=== PATIENT | female | born 1985 | race Caucasian/White ===

== ENCOUNTER → 2017-05-31 15:18 | Outpatient (CLI) | payer OTHER, SELFPAY ==
[2017-05-31 17:37] LABS: Chlamydia Trachomatis by PCR Negative (Negative); Neisserai gonorrhoeae by PCR Negative (Negative); Probe Check PASS; Sample Adequacy Control PASS; Specimen Processing Control PASS
[2017-06-05 11:04] LABS: HPV Reflexed? NOT INDICATED
== END ==
PROVIDERS: Visit Provider Obstetrics & Gynecology
DX: Z12.4 Encounter for screening for malignant neoplasm of cervix (principal); Z11.3 Encounter for screening for infections with a predominantly sexual mode of transmission
CPT/HCPCS: 87491; 87591; 88175; G0145

== ENCOUNTER → 2017-06-19 16:33 | Outpatient (CLI) | payer OTHER, SELFPAY ==
[2017-06-19 18:01] LABS: Absolute Neutrophil Count 7.2 X10^3/uL (2.0-7.7); Basophil# 0.02 X10^3/uL; Basophil% 0.2 % (0-1); Eosinophil# 0.09 X10^3/uL; Eosinophils% 0.9 % (0-5); Hematocrit 39.8 % (37-47); Hemoglobin 13.6 g/dl (12.0-15.0); Lymphocyte % 18.5 % (19-41); Mean Corp Hgb Conc 34.2 g/gl (32-36); Mean Corpuscular Hgb 31.9 pg (27.0-32.0); Mean Corpuscular Volume 93.2 fL (81-99); Mean Platelet Vol. 10.8 fl (6.2-12.0); Monocyte# 0.63 X10^3/uL; Monocyte% 6.5 % (0-10); Neutrophil # 7.15 X10^3/uL (2.7-7.7); Neutrophil % 73.7 % (47-70); POSITIVE COUNT NO; POSITIVE DIFFERENTIAL NO; POSITIVE MORPHOLOGY NO; Platelet Count 271 K/mm3 (150-450); RBC Distribution Width CV 11.9 % (11.6-14.6); RBC Distribution Width SD 40.2 fl (35.1-43.9); Red Blood Count 4.27 M/mm3 (4.2-5.4); White Blood Count 9.7 K/mm3 (4.4-11.0)
[2017-06-19 18:23] LABS: Thyroid Stim Hormone (TSH) 0.89 uIU/mL (0.358-3.74)
[2017-06-19 18:32] LABS: Color, Urine Yellow (Yellow); Glucose, Dipstick Normal (Normal); Ketone-Dipstick Negative (Negative); Leukocyte Esterase-Dipstick Negative /ul (Negative); Nitrite-Dipstick Negative (Negative); Occult Blood-Urine Negative /ul (Negative); Protein-Dipstick Negative (Negative); Urine Bilirubin Dipstick Negative (Negative); Urine Clarity Sl. Cloudy (Clear); Urine Urobilinogen Normal (Normal); Urine pH 6.5 (5.0 - 8.0)
[2017-06-19 18:40] LABS: Amphetamine Urine VISTA NEGATIVE (<1000 ng/mL); Barbiturate Urine VISTA NEGATIVE (< 200 ng/mL); Benzodiazepine Urine VISTA NEGATIVE (< 200 ng/mL); Cocaine Urine VISTA NEGATIVE (< 300 ng/mL); Ecstacy Urine VISTA NEGATIVE (< 500 ng/mL); Methadone Urine VISTA NEGATIVE (< 300 ng/mL); PCP Urine VISTA NEGATIVE (< 25 ng/mL); THC Urine VISTA NEGATIVE (< 50 ng/mL); Vista UDS pH Range 6
[2017-06-20 10:36] LABS: HIV - WCH Non-Reactive (Nonreactive); Rubella IgG > 500.0 IU/mL; Vitamin D,25 Hydroxy 9.5 ng/mL (29.95-100.01)
[2017-06-21 12:32] LABS: Toxoplasma Gondii IgM < 3.0 AU/mL (0.0-7.9)
[2017-06-21 12:33] LABS: HEPATITIS B SURFACE AG Negative (Negative); Hep C Antibodies <0.1 s/co ratio (0.0-0.9); Toxoplasma Gondii IgG < 3.0 IU/mL (0.0-7.1)
[2017-06-22 02:34] LABS: Prenatal RPR NONREACTIVE (NONREACTIVE)
== END ==
PROVIDERS: Visit Provider Obstetrics & Gynecology
DX: Z34.81 Encounter for supervision of other normal pregnancy, first trimester (principal)
CPT/HCPCS: 36415; 80307; 81002; 82306; 83036; 84443; 85025; 86703; 86762; 86777; 86778; 86803; 87340

== ENCOUNTER → 2017-10-19 08:55 | Outpatient (CLI) | payer OTHER, SELFPAY ==
[2017-10-19 12:05] LABS: Hematocrit 37.5 % (37-47); Mean Corp Hgb Conc 34.7 g/gl (32-36); Mean Corpuscular Hgb 31.7 pg (27.0-32.0); Mean Corpuscular Volume 91.5 fL (81-99); Mean Platelet Vol. 10.9 fl (6.2-12.0); Platelet Count 243 K/mm3 (150-450); RBC Distribution Width CV 12.6 % (11.6-14.6); RBC Distribution Width SD 40.7 fl (35.1-43.9); White Blood Count 10.8 K/mm3 (4.4-11.0)
[2017-10-19 12:07] LABS: Scan Indicated on CBC? Y/N NO
[2017-10-19 12:17] LABS: Glucose Challenge Gest 1H 50g 70 mg/dL (70-140)
== END ==
PROVIDERS: Visit Provider Obstetrics & Gynecology
DX: Z34.82 Encounter for supervision of other normal pregnancy, second trimester (principal)
CPT/HCPCS: 36415; 82950; 85027

== ENCOUNTER → 2017-11-01 16:08 | Outpatient (CLI) | payer OTHER, SELFPAY ==
[2017-11-02 11:59] LABS: Vitamin D,25 Hydroxy 20.6 ng/mL (29.95-100.01)
== END ==
PROVIDERS: Visit Provider Obstetrics & Gynecology
DX: E55.9 Vitamin D deficiency, unspecified (principal)
CPT/HCPCS: 82306

== ENCOUNTER → 2017-12-14 09:07 | Outpatient (CLI) | payer OTHER, SELFPAY ==
[2017-12-14 12:31] LABS: Group B Strep DNA By PCR POSITIVE (Negative); Probe Check PASS
== END ==
PROVIDERS: Visit Provider Obstetrics & Gynecology
DX: Z36.85 Encounter for antenatal screening for Streptococcus B (principal)
CPT/HCPCS: 87653

== ENCOUNTER 2017-12-29 06:04 | Outpatient (CLI) | payer OTHER, SELFPAY ==
[2017-12-29 06:13] VITALS: BMI 41.8
--- NOTE | 2017-12-29 08:57 | PCM.OP.BLANK ---
Operative Report Date of Procedure: 12/29/17 PreOp Dx: Breech presentation, prior vaginal delivery PostOp Dx: Persistent breech presentation, unsuccessful trial of external cephalic version Operation: External Cephalic Version Findings: NST reactive pre and post procedure Clinical Note: Ms. Coats is a 23 year old female who presented to L&D for a scheduled external cephalic version. Her past OB history is significant for a previous successful vaginal delivery. At her most recent office visit she was diagnosed with a breech presentation. Fetus is AGA. Anterior placenta and DONAL 15 cm. Today she is currently 37 + weeks . A reactive heart tracing was obtained prior to the procedure. Risks of ECV, including abnormal FHR, possible emergency C/S, and failed ECV were discussed with the patient and consent was obtained. Procedure Note: A bedside ultrasound was performed which confirmed the single intrauterine with vertex at maternal epigastrium to RUQ, breech presentation. There was adequate fluid documented 12/27/17. Active movement, breathing noted. BPP was 8/8. The pelvis was located in the maternal RLQ, spine along the maternal left side, and head in the maternal epigastrium to RUQ. Using manual pressure, the fetus was manipulated with gentle pressure from the palms against the buttock and posterior occiput to stimulate a forward roll. In total, four attempts where made. with a forward roll and one attempt made at back flip. HRs were obtained between each attempt and were reassuring . The fetus remained in breech presentation, with movement of the VTX only tot he maternal R side, at near waist level. Following the trial procedure, she was noted to have a reassuring and reactive tracing and no regular contractions . She was discharged home with instructions to return to L&D if signs / symptoms of labor, and otherwise she will follow up in the office as scheduled for repeat evaluation of presentation.
--- NOTE | 2018-01-01 08:11 | OB.TRI.NOTE ---
- Problem List (1) 38 weeks gestation of Status: Acute (2) Malpresentation of fetus, antepartum Status: Acute History of Present Illness Date of Service: 12/29/17 Was patient seen by the physician?: Yes Reason For Visit: VERSION Date of Service: 12/29/17 Final LEIGHTON: 01/12/18 Gestational age: 38 Weeks and 0 Days History of Present Illness: 32 yo female presents at 38 wk for trial of external cephalic version. She is scheduled for primary C/S at 39 wk, but called in to ofc late 12/28/17 stating wanting to try ext cephalic version. AGA and DONAL 15 cm in ofc. Breech with VTX in maternal epigastrium, to RUQ. Anterior placenta. Allergies Penicillins [PCN] Allergy (Verified 12/29/17 06:38) Itching NST - FHR Rate Baby A Variability:: Moderate Accelerations:: 15 x 15 Decelerations:: None NST Reactive:: Yes, Appropriate for gestational age FHR Category:: Category I Uterine Activity:: no regular UCs Impression/Plan 38 wk EGA NST reactive before and after the attempted ECV. Trial of external cephalic version, unsuccessful. Plan primary C/S at 39 wks
== END 2017-12-29 08:15 | disposition home or self-care (01) ==
LOC: WPOUT 06:10 → WP 06:11
PROVIDERS: Visit Provider Obstetrics & Gynecology
DX: O32.1XX0 Maternal care for breech presentation, not applicable or unspecified (principal); Z3A.38 38 weeks gestation of pregnancy
CPT/HCPCS: 59025; 59050; 59412; 76815; 99218; G0378

== ENCOUNTER 2018-01-08 05:15 | Inpatient (IN) | payer OTHER, SELFPAY ==
[2018-01-08] VITALS (20 sets, daily range): BP systolic 91–111; BP diastolic 44–71; PULSE 79–103; RESP 12–20; TEMP 35.9–37.3; O2SAT 96–99; BMI 42.0
--- NOTE | 2018-01-08 | FALS_PTH ---
PATIENT: MARISOL BARNES LOC: [facility] U#:[id number] AGE/SX: 32/F ROOM: WP002 RE01/08/[address]: Dr. Yady Champion MD : [id number] BED: 1 DIS: 01/10/2018 SPEC #: [id number] RECD: 01/08/18 13:12 STATUS: CAITLIN RENhi #: [id number] PATRICIA: 01/08/18 00:[address]: Yady Tran DEPT: SURGICAL PATHOLOGY RECD BY: Marcel Smiley ENTERED: 01/08/18 13:12 SP TYPE: FALL TUBES OTHR DR: No Primary Care Phys Tissues: Fallopian tube Procedures: Surgery Specimen Level II HEADER OPERATION: Tubal ligation, fallopian tubes PRE-OP DIAGNOSIS: Tubal ligation TISSUE SUBMITTED: Fallopian tubs, sutures in right tube MICROSCOPIC DIAGNOSIS Right and left fallopian tubes, salpingectomies: Two complete segments of fallopian tubes with no pathologic change. AM:marisabel 01/09/18 MICROSCOPIC DESCRIPTION Slides are reviewed. GROSS DESCRIPTION Received is one container labeled with the patient name and designated right fallopian tube with suture, left tube no suture. The specimen consists of two irregular pieces of dove soft tissue, right tube identified by suture that measure 1 cm in length and 0.9 cm in diameter and inked black. The left tube without suture measures 1.5 in length and 0.8 cm in diameter. The entire specimen is submitted in one cassette. Both pieces will be sectioned at the time of embedding. / BRIANNA:marisabel 01/08/18 TC: 4 CPT: 83774 x2
[2018-01-08] MEDS: Lactated Ringers 1,000 ML 999 ML IV (05:45)
[2018-01-08 06:39] LABS: Absolute Lymphocyte Count 1.58 X10^3/ul (0.83-4.51); Absolute Neutrophil Count 6.9 X10^3/uL (2.0-7.7); Basophil# 0.03 X10^3/uL; Basophil% 0.3 % (0-1); Eosinophil# 0.08 X10^3/uL; Eosinophils% 0.9 % (0-5); Hematocrit 35.8 % (37-47); Hemoglobin 12.2 g/dl (12.0-15.0); Lymphocyte # 1.58 X10^3/ul (4.0); Lymphocyte % 17.2 % (19-41); Mean Corp Hgb Conc 34.1 g/gl (32-36); Mean Corpuscular Volume 91.1 fL (81-99); Mean Platelet Vol. 11.1 fl (6.2-12.0); Monocyte# 0.62 X10^3/uL; Monocyte% 6.7 % (0-10); Neutrophil # 6.86 X10^3/uL (2.7-7.7); Neutrophil % 74.6 % (47-70); Platelet Count 219 K/mm3 (150-450); RBC Distribution Width CV 12.9 % (11.6-14.6); RBC Distribution Width SD 42.6 fl (35.1-43.9); Red Blood Count 3.93 M/mm3 (4.2-5.4); White Blood Count 9.2 K/mm3 (4.4-11.0)
[2018-01-08] MEDS: Lactated Ringers 1,000 ML 150 ML IV (06:54)
[2018-01-08] MEDS: Sodium Citrate/Citric Acid 30 ML UDC PO (07:10)
[2018-01-08 07:15] LABS: POSITIVE COUNT NO; POSITIVE DIFFERENTIAL NO; POSITIVE MORPHOLOGY NO
--- NOTE | 2018-01-08 08:57 | PCM.OB.CSR ---
- Problem List (1) 39 weeks gestation of Status: Acute (2) Breech presentation of fetus Status: Acute Qualifiers: Fetus number: single or unspecified fetus Qualified Code(s): O32.1XX0 - Maternal care for breech presentation, not applicable or unspecified Comment: Infant 3435g (3) Encounter for sterilization Status: Acute Delivery Classification: Scheduled Final LEIGHTON: 01/12/18 Final LEIGHTON Source: US <20 weeks Gestational age: 39 Weeks and 3 Days Indications: 32-year-old 2 para 1001 who was found to have breech presentation at 37 weeks gestational age. She underwent attempted external cephalic version which was unsuccessful. Following counseling she declined repeat version attempt and opted to proceed with primary section with bilateral tubal ligation. Risks, benefits, indications and alternatives of procedure were reviewed. Informed consent was obtained. Indications for : Breech Description of Procedure: The patient was taken to the operating room and spinal analgesia was administered. She is placed in a dorsal supine position with left lateral tilt. The perineum and abdomen were prepped and draped in sterile fashion. And the spinal was found to be adequate. A Pfannenstiel incision was made using a scalpel and brought down to incise the subcutaneous tissue and rectus fascia at the midline. Subcutaneous tissue was bluntly dissected off the fascia laterally. The fascial incision was dissected laterally and cephalad using curved Adair scissors. The superior leaflet of the rectus fascia was grasped using Alisson clamps and bluntly dissected and sharply dissected from the underlying rectus muscle. In a similar fashion the inferior rectus fascia was dissected from the underlying muscle. The rectus muscles were bluntly at the midline. The peritoneum was identified and entered [sharply]. The bladder blade was placed into the abdomen and the vesicouterine peritoneal fold identified. The fold was incised and a bladder flap created. Bladder blade was then repositioned to the abdomen. A low transverse hysterotomy was made using the [Metzenbaum scissors] to level of the membranes. The hysterotomy was extended bluntly cephalad and caudad. The membranes were then ruptured revealing clear fluid. The left lower extremity delivered spontaneous by the hysterotomy. The right lower extremity was grasped and delivered through the hysterotomy further. A towel was placed over the sacrum and using gentle bidirectional rotation the infant body delivered to the level of the shoulders. The right than left upper extremities were swept through the hysterotomy. A head was delivered using the Gzsxldaxc-Zwukpbj-Ciqi maneuver. The a nuchal cord was reduced x1. The cord was doubly clamped and cut and the passed to nursery personnel. The placenta was [expressed] from the uterus and appeared intact on inspection. The uterus was cleared of debris. The uterus was exteriorized. The hysterotomy was then repaired using 0 Vicryl running lock suture. A second imbricating layer was also placed for additional hemostasis. A left partial salpingectomy was performed in a [place] fashion using o plain gut suture. Similarly [place] tubal ligation was performed on the right. The uterus and adnexa were returned to the abdomen. Good hemostasis remained. The anterior cul-de-sac was cleared of debris. The peritoneum and rectus muscles were reapproximated using 2-0 Vicryl running suture. The rectus fascia was closed using 0 Vicryl running suture. The subcutaneous tissue was reapproximated using 2-0 Vicryl. The skin was closed using 4-0 Monocryl subcuticularly by the CLOSED CIRCUIT SCREEN WATCHER under my supervision. Mepilex occlusive dressing was placed over the incision. The fundus was firm. The patient was then transferred to the recovery room without complication. Sponge, instrument, and needle counts were correct ?2. Amniotic Membrane Rupture Type: Artificial Amniotic Fluid Description: Clear Placenta Disposition: [facility] Drain: Schilling to straight drain Fluids Replaced: 1100 ml Cord Entanglement: Around neck x 1, loose Nuchal Cord Compression: Without compression Cord Vessel Description: 3 Vessels Esitmated Blood Loss (ml): 600 Gender: Female (1 minute): 8 (5 minute): 9 Delayed cord clamping: No Pre-op Antibiotic Given: - - Clindamycin 900 mg IV x 1, Gentamicin 5mg/kg IV x 1 Pt instructed on risks of surgery: Bleeding, Anesthesia Risks, Infection, Failure Rate of 1 to 2%, Injury to surrounding structure(s) including bowel and bladder, Availability of other non-permanent control options Complications: None - Admit VTE Documentation VTE Present on Admission: No VTE Mechan Device Prophylaxis: SCD's VTE Pharm Prophylaxis ordered?: No
--- NOTE | 2018-01-08 09:02 | OP.PCM_ITS ---
- Problem List (1) 39 weeks gestation of Status: Acute (2) Breech presentation of fetus Status: Acute Qualifiers: Fetus number: single or unspecified fetus Qualified Code(s): O32.1XX0 - Maternal care for breech presentation, not applicable or unspecified Comment: Infant 3435g (3) Encounter for sterilization Status: Acute Delivery Classification: Scheduled Final LEIGHTON: 01/12/18 Final LEIGHTON Source: US <20 weeks Gestational age: 39 Weeks and 3 Days Indications: 32-year-old 2 para 1001 who was found to have breech presentation at 37 weeks gestational age. She underwent attempted external cephalic version which was unsuccessful. Following counseling she declined repeat version attempt and opted to proceed with primary section with bilateral tubal ligation. Risks, benefits, indications and alternatives of procedure were reviewed. Informed consent was obtained. Indications for : Breech Description of Procedure: The patient was taken to the operating room and spinal analgesia was administered. She is placed in a dorsal supine position with left lateral tilt. The perineum and abdomen were prepped and draped in sterile fashion. And the spinal was found to be adequate. A Pfannenstiel incision was made using a scalpel and brought down to incise the subcutaneous tissue and rectus fascia at the midline. Subcutaneous tissue was bluntly dissected off the fascia laterally. The fascial incision was dissected laterally and cephalad using curved Adair scissors. The superior leaflet of the rectus fascia was grasped using Alisson clamps and bluntly dissected and sharply dissected from the underlying rectus muscle. In a similar fashion the inferior rectus fascia was dissected from the underlying muscle. The rectus muscles were bluntly at the midline. The peritoneum was identified and entered [sharply]. The bladder blade was placed into the abdomen and the vesicouterine peritoneal fold identified. The fold was incised and a bladder flap created. Bladder blade was then repositioned to the abdomen. A low transverse hysterotomy was made using the [Metzenbaum scissors] to level of the membranes. The hysterotomy was extended bluntly cephalad and caudad. The membranes were then ruptured revealing clear fluid. The left lower extremity delivered spontaneous by the hysterotomy. The right lower extremity was grasped and delivered through the hysterotomy further. A towel was placed over the sacrum and using gentle bidirectional rotation the infant body delivered to the level of the shoulders. The right than left upper extremities were swept through the hysterotomy. A head was delivered using the Xkxsfdqfb-Lvctklm-Pose maneuver. The a nuchal cord was reduced x1. The cord was doubly clamped and cut and the passed to nursery personnel. The placenta was [expressed] from the uterus and appeared intact on inspection. The uterus was cleared of debris. The uterus was exteriorized. The hysterotomy was then repaired using 0 Vicryl running lock suture. A second imbricating layer was also placed for additional hemostasis. A left partial salpingectomy was performed in a [place] fashion using o plain gut suture. Similarly [place] tubal ligation was performed on the right. The uterus and adnexa were returned to the abdomen. Good hemostasis remained. The anterior cul-de-sac was cleared of debris. The peritoneum and rectus muscles were reapproximated using 2-0 Vicryl running suture. The rectus fascia was closed using 0 Vicryl running suture. The subcutaneous tissue was reapproximated using 2-0 Vicryl. The skin was closed using 4-0 Monocryl subcuticularly by the FELLER BUNCHER OPERATOR under my supervision. Mepilex occlusive dressing was placed over the incision. The fundus was firm. The patient was then transferred to the recovery room without complication. Sponge, instrument, and needle counts were correct ?2. Amniotic Membrane Rupture Type: Artificial Amniotic Fluid Description: Clear Placenta Disposition: [facility] Drain: Schilling to straight drain Fluids Replaced: 1100 ml Cord Entanglement: Around neck x 1, loose Nuchal Cord Compression: Without compression Cord Vessel Description: 3 Vessels Esitmated Blood Loss (ml): 600 Gender: Female (1 minute): 8 (5 minute): 9 Delayed cord clamping: No Pre-op Antibiotic Given: - - Clindamycin 900 mg IV x 1, Gentamicin 5mg/kg IV x 1 Pt instructed on risks of surgery: Bleeding, Anesthesia Risks, Infection, Failure Rate of 1 to 2%, Injury to surrounding structure(s) including bowel and bladder, Availability of other non-permanent control options Complications: None - Admit VTE Documentation VTE Present on Admission: No VTE Mechan Device Prophylaxis: SCD's VTE Pharm Prophylaxis ordered?: No
[2018-01-08] MEDS: proCHLORPERazine 10 MG/2 ML Vial 2.5 MG IV (09:51)
[2018-01-08] MEDS: proMETHazine 25 MG/ML Syringe 12.5 MG IV (10:58)
[2018-01-08 11:43] LABS: Pathology Specimen OB SEE PATHOLOGY REPORT
[2018-01-08] MEDS: Lactated Ringers 1,000 ML 100 ML IV ×2 (12:17→21:59)
[2018-01-08] MEDS: Ketorolac 30 MG/ML Syringe IV ×2 (15:11→21:01)
--- NOTE | 2018-01-08 18:14 | CPS ---
nursing baby, nursing to start
[2018-01-09] VITALS (10 sets, daily range): BP systolic 92–114; BP diastolic 52–70; PULSE 81–98; RESP 16–18; TEMP 36.7–37.3; O2SAT 97–100
[2018-01-09] MEDS: Ketorolac 30 MG/ML Syringe IV (03:00)
[2018-01-09 05:30] LABS: Hematocrit 30.8 % (37-47); Hemoglobin 10.1 g/dl (12.0-15.0); Mean Corp Hgb Conc 32.8 g/gl (32-36); Mean Corpuscular Hgb 30.3 pg (27.0-32.0); Mean Corpuscular Volume 92.5 fL (81-99); Mean Platelet Vol. 10.7 fl (6.2-12.0); Platelet Count 199 K/mm3 (150-450); RBC Distribution Width SD 43.9 fl (35.1-43.9); Red Blood Count 3.33 M/mm3 (4.2-5.4); White Blood Count 10.6 K/mm3 (4.4-11.0)
[2018-01-09 05:41] LABS: Scan Indicated on CBC? Y/N NO
--- NOTE | 2018-01-09 07:40 | PCM.PN.OB ---
Patient Problems: Active and Suspected Problems 39 weeks gestation of (Acute) Breech presentation of fetus (Acute) 3435g Encounter for sterilization (Acute) Subjective: Has nausea yesterday, now resolved. Tolerates a regular diet. No flatus yet. OOB to chair. Pain manageable. latching well. Objective: avss - Physical Exam General: Alert, Oriented x3, Cooperative, No apparent distress HEENT: Atraumatic, Normocephalic Lungs: Clear to auscultation, Normal air movement, No rhonchi, No wheeze, No rales Cardiovascular: Regular rate, Regular Rhythm, Normal S1, Normal S2 Abdomen: Bowel Sounds Present, Soft, Non Tender, Non-Distended, - - Fundus firm and nontender, incisional dressing c/d/i Extremities: No edema, No Calf Tenderness Neurological: Neuro grossly intact Psych/Mental Status: Normal Affect, Appropriate, Alert and oriented to time, place, person, mood and affect Vital Signs Temp Pulse Resp BP Pulse Ox 98.1 F 91 18 92/52 L 98 01/09/18 04:33 01/09/18 06:10 01/09/18 06:10 01/09/18 04:33 01/09/18 06:10 Oxygen Delivery Method Room Air Weight: 104.262 kg Body Mass Index (BMI) 42.0 Intake and Output for Last 24 Hours 01/07/18 01/08/18 01/09/18 23:59 23:59 23:59 Intake Total 4211 / 4211 880 / 880 Output Total 1700 / 1700 1750 / 1750 Balance 2511 / 2511 -870 / -870 Laboratory Tests Past 24 Hrs 01/08/18 01/09/18 05:50 04:45 WBC 10.6 RBC 3.33 L Hgb 10.1 L Hct 30.8 L MCV 92.5 MCH 30.3 MCHC 32.8 RDW 13.0 RDW Differential 43.9 Plt Count 199 MPV 10.7 Blood Type B POSITIVE Antibody Screen NEGATIVE Medical Necessity - Tobacco Use Smoking Status: Former smoker Assessment/Plan All Active Problems 38 weeks gestation of (Acute) Malpresentation of fetus, antepartum (Acute) 39 weeks gestation of (Acute) Breech presentation of fetus (Acute) Encounter for sterilization (Acute) 32yo PPD#1 s/p PLTCS, BTL doing well. -Rh positive, Rubella immune -Routine postop care -d/c noriega -
[2018-01-09] MEDS: Ibuprofen 600 MG Tablet PO ×3 (09:37→21:36)
[2018-01-09] MEDS: Senna/Docusate Sodium 1 Tablet PO (11:48)
--- NOTE | 2018-01-09 12:31 | NURSING ---
This nursing support worker reviewed the charting completed by Gerhard Ca, student nurse.
[2018-01-10 01:56] VITALS: BP 111/65; PULSE 89; RESP 15; TEMP 36.9; O2SAT 98
[2018-01-10] MEDS: Ibuprofen 600 MG Tablet PO ×2 (04:24→10:38)
--- NOTE | 2018-01-10 07:46 | PCM.PN.OB ---
Patient Problems: Active and Suspected Problems 39 weeks gestation of (Acute) Breech presentation of fetus (Acute) Infant 3435g Encounter for sterilization (Acute) Subjective: No issues overnight. Pain is minimal. Has not required Oxycodone. Passing flatus and had a bowel movement. Desires discharge today. Objective: AVSS - Physical Exam General: Alert, Oriented x3, Cooperative, No apparent distress HEENT: Atraumatic, Normocephalic Lungs: Clear to auscultation, Normal air movement Cardiovascular: Regular rate, Regular Rhythm, Normal S1, Normal S2 Abdomen: Bowel Sounds Present, Soft, Non Tender, Non-Distended, - - Fundus firm and nontender, incisional dressing c/d/i Extremities: No Calf Tenderness, - - trace b/l LE edema Neurological: Neuro grossly intact Psych/Mental Status: Normal Affect, Appropriate, Alert and oriented to time, place, person, mood and affect Vital Signs Temp Pulse Resp BP Pulse Ox 98.5 F 89 15 111/65 98 01/10/18 01:56 01/10/18 01:56 01/10/18 01:56 01/10/18 01:56 01/10/18 01:56 Oxygen Delivery Method Room Air Weight: 104.262 kg Body Mass Index (BMI) 42.0 Intake and Output for Last 24 Hours 01/08/18 01/09/18 01/10/18 23:59 23:59 23:59 Intake Total 4211 / 4211 880 / 880 Output Total 1700 / 1700 2100 / 2100 Balance 2511 / 2511 -1220 / -1220 Medical Necessity - Tobacco Use Smoking Status: Former smoker Assessment/Plan All Active Problems 38 weeks gestation of (Acute) Malpresentation of fetus, antepartum (Acute) 39 weeks gestation of (Acute) Breech presentation of fetus (Acute) Encounter for sterilization (Acute) 32yo PPD#2 s/p PLTCS, BTL doing well. -Rh positive, Rubella immune -Routine postop care - -d/c home today -Reviewed home activities, precautions, incision care
[2018-01-10 07:50] VITALS: BP 108/70; PULSE 94; RESP 16; TEMP 36.8; O2SAT 97
--- NOTE | 2018-01-10 07:53 | PCM.DCCSEC ---
Discharge Diet: No Restrictions Discharge Activity: Return to Normal Activity, May not drive while taking narcotic pain medications., May Shower, - - No tub bath x 2 weeks, nothing in the vagina (no douching, no intercourse, no tampons) May resume sexual activity in: 6 weeks Lifting Restrictions: 10 lb Call your doctor if your incision/area has: Continuous Slow Oozing, Sudden Increased Bleeding, Increased Pain/ Swelling, Increased Redness Call your doctor if you observe: Fever of 101 or Higher, Inability to urinate, Inability to have a bowel movement, Using more than one pad per hour, Shortness of breath, Chest pain, Calf discomfort, Uncontrolled pain, - - Persistent severe headache Suture Line Care: Avoid Pulling/Pushing Remove Dressing in (days):: - Sunday Cleanse incision/area with: Soap & Water Additional Instructions: If you experience any of the following, contact your healthcare provider. Bleeding that soaks a pad every hour for 2 hours Fever 100.4 or higher Unrelieved incision or abdominal pain Swelling, redness, discharge or bleeding from your incision or episiotomy site Your incision begins to separate Problems urinating (including inability to urinate or burning while urinating). Visual changes Severe headache Flu-like symptoms Pain or redness in one of both of your breasts Pain, warmth, tenderness or swelling in your legs, especially the calf area Frequent nausea and vomiting Symptoms of depression or anxiety If you experience any of the following, call 911 or go to the nearest Emergency Room. Chest pain Problems breathing Seizure activity Partial or complete paralysis of a body part, slurred speech, weakness or drooping of the face, or a sudden inability to walk or hold your balance Allergies/Adverse Reactions: Allergies Penicillins [PCN] Allergy (Verified 01/08/18 05:56) Itching Medications to take at Discharge Calcium Carbonate [Tums] 500 mg PO DAILY 12/29/17 Docusate Sodium [Colace] 100 mg PO BID PRN #30 capsule 01/10/18 Ibuprofen 600 mg PO TID PRN #30 tablet 01/10/18 Oxycodone [Oxyir] 5 mg PO Q6H PRN PRN 3 Days #5 tablet 01/10/18 The following prescriptions were given: Oxycodone [Oxyir] 5 mg PO Q6H PRN PRN 3 Days #5 tablet PRN Reason: Mod-Severe Pain (4-12/05) Docusate Sodium [Colace] 100 mg PO BID PRN #30 capsule PRN Reason: Constipation Ibuprofen 600 mg PO TID PRN #30 tablet PRN Reason: Pain Follow-Up: Call to make an appointment with your doctor for an incision check in 1-2 weeks. You will also need a 6 week post- follow up appointment. Test results from this visit will be discussed in further detail at your follow-up appointment, if applicable. Please Follow Up With: Yady Camacho MD When: 1-2 weeks Primary Care Physician: Care Physician,No Primary [Primary Care Provider] -
--- NOTE | 2018-01-10 07:56 | DCINST_ITS ---
Discharge Diet: No Restrictions Discharge Activity: Return to Normal Activity, May not drive while taking narcotic pain medications., May Shower, - - No tub bath x 2 weeks, nothing in the vagina (no douching, no intercourse, no tampons) May resume sexual activity in: 6 weeks Lifting Restrictions: 10 lb Call your doctor if your incision/area has: Continuous Slow Oozing, Sudden Increased Bleeding, Increased Pain/ Swelling, Increased Redness Call your doctor if you observe: Fever of 101 or Higher, Inability to urinate, Inability to have a bowel movement, Using more than one pad per hour, Shortness of breath, Chest pain, Calf discomfort, Uncontrolled pain, - - Persistent severe headache Suture Line Care: Avoid Pulling/Pushing Remove Dressing in (days):: - Sunday Cleanse incision/area with: Soap & Water Additional Instructions: If you experience any of the following, contact your healthcare provider. * Bleeding that soaks a pad every hour for 2 hours * Fever 100.4 or higher * Unrelieved incision or abdominal pain * Swelling, redness, discharge or bleeding from your incision or episiotomy site * Your incision begins to separate * Problems urinating (including inability to urinate or burning while urinating). * Visual changes * Severe headache * Flu-like symptoms * Pain or redness in one of both of your breasts * Pain, warmth, tenderness or swelling in your legs, especially the calf area * Frequent nausea and vomiting * Symptoms of depression or anxiety If you experience any of the following, call 911 or go to the nearest Emergency Room. * Chest pain * Problems breathing * Seizure activity * Partial or complete paralysis of a body part, slurred speech, weakness or drooping of the face, or a sudden inability to walk or hold your balance Allergies/Adverse Reactions: Allergies Penicillins [PCN] Allergy (Verified 01/08/18 05:56) Itching Medications to take at Discharge Calcium Carbonate [Tums] 500 mg PO DAILY 12/29/17 Docusate Sodium [Colace] 100 mg PO BID PRN #30 capsule 01/10/18 Ibuprofen 600 mg PO TID PRN #30 tablet 01/10/18 Oxycodone [Oxyir] 5 mg PO Q6H PRN PRN 3 Days #5 tablet 01/10/18 The following prescriptions were given: Oxycodone [Oxyir] 5 mg PO Q6H PRN PRN 3 Days #5 tablet PRN Reason: Mod-Severe Pain (4-12/05) Docusate Sodium [Colace] 100 mg PO BID PRN #30 capsule PRN Reason: Constipation Ibuprofen 600 mg PO TID PRN #30 tablet PRN Reason: Pain Follow-Up: Call to make an appointment with your doctor for an incision check in 1-2 weeks. You will also need a 6 week post- follow up appointment. Test results from this visit will be discussed in further detail at your follow- up appointment, if applicable. Please Follow Up With: Yady Camacho MD When: 1-2 weeks Primary Care Physician: Care Physician,No Primary [Primary Care Provider] -
[2018-01-15 15:29] LABS: Pathology Specimen OB SEE PATHOLOGY REPORT
--- NOTE | 2018-01-15 18:29 | PCM.DC.SUM ---
Discharge Date and Diagnosis Date of Admission: 01/08/18 Date of Discharge: 01/10/18 Hospital Course and Treatment Operations: - - Primary low transverse section Procedures: None Summary of Care Provided: The patient is a 32 year old presenting at 39 1/7wga for scheduled section for breech presentation. She underwent an uncomplicated section. Her postoperative course was unremarkable and she was discharged to home on postoperative day #2. - Physical Exam Vital Signs Temp Pulse Resp BP Pulse Ox 98.3 F 94 16 108/70 97 01/10/18 07:50 01/10/18 07:50 01/10/18 07:50 01/10/18 07:50 01/10/18 07:50 Oxygen Delivery Method Room Air Weight: 104.262 kg Body Mass Index (BMI) 42.0 Discharge Diet: No Restrictions Discharge Activity: Return to Normal Activity, May not drive while taking narcotic pain medications., May Shower, - - No tub bath x 2 weeks, nothing in the vagina (no douching, no intercourse, no tampons) May resume sexual activity in: 6 weeks Call your doctor if your incision/area has: Continuous Slow Oozing, Sudden Increased Bleeding, Increased Pain/ Swelling, Increased Redness Call your doctor if you observe: Fever of 101 or Higher, Inability to urinate, Inability to have a bowel movement, Using more than one pad per hour, Shortness of breath, Chest pain, Calf discomfort, Uncontrolled pain, - - Persistent severe headache Suture Line Care: Avoid Pulling/Pushing Remove Dressing in (days):: 5 - Sunday Cleanse incision/area with: Soap & Water Home Medications: Medications to take at Discharge Calcium Carbonate [Tums] 500 mg PO DAILY 12/29/17 Docusate Sodium [Colace] 100 mg PO BID PRN #30 capsule 01/10/18 Ibuprofen 600 mg PO TID PRN #30 tablet 01/10/18 Following Prescrptions Were Given to Patient: Docusate Sodium [Colace] 100 mg PO BID PRN #30 capsule PRN Reason: Constipation Ibuprofen 600 mg PO TID PRN #30 tablet PRN Reason: Pain Primary Care Physician: Care Physician,No Primary [Primary Care Provider] - Please Follow Up With: Yady Camacho MD When: 1-2 weeks Medical Necessity - Tobacco Use Smoking Status: Former smoker Meaningful Use Info Meaningful Use Diagnoses (Choose all that apply): None applicable
== END 2018-01-10 13:00 | disposition home or self-care (01) | DRG 784 ==
PROVIDERS: Admitting Provider Obstetrics & Gynecology; Referring Provider Obstetrics & Gynecology; Visit Provider Obstetrics & Gynecology
PROC: (CPT 59514; principal; 2018-01-08 07:15)
PROC: 0UL70ZZ Occlusion of Bilateral Fallopian Tubes, Open Approach (ICD-10-PCS; 2018-01-08 07:15)
DX: O32.1XX0 Maternal care for breech presentation, not applicable or unspecified (principal); O98.82 Other maternal infectious and parasitic diseases complicating childbirth; B95.1 Streptococcus, group B, as the cause of diseases classified elsewhere; O69.81X0 Labor and delivery complicated by cord around neck, without compression, not applicable or unspecified; Z3A.39 39 weeks gestation of pregnancy; Z37.0 Single live birth
CPT/HCPCS: 76815; 85025; 85027; 86850; 86900; 88302; 99218; J7120; G0378; J2405

== ENCOUNTER → 2018-03-11 13:54 | Outpatient (CLI) | payer OTHER, SELFPAY ==
[2018-01-08 05:29] VITALS: BMI 42.0
[2018-03-11 18:14] LABS: Vitamin D,25 Hydroxy 10.7 ng/mL (29.95-100.01)
[2018-03-15 09:36] LABS: Vitamin D 1,25-Dihydroxy 52.3 pg/mL (19.9-79.3)
== END ==
PROVIDERS: Visit Provider Obstetrics & Gynecology
DX: E55.9 Vitamin D deficiency, unspecified (principal)
CPT/HCPCS: 82306; 82652

== ENCOUNTER → 2020-09-23 15:25 | Outpatient (CLI) | payer OTHER, SELFPAY ==
[2018-01-08 05:29] VITALS: BMI 42.0
[2020-09-23 18:13] LABS: ALB/GLOB Ratio 1.2 RATIO (0.9-2.4); AST(SGOT) 12 U/L (15-37); Alanine Aminotransfer ALT/SGPT 25 U/L (13-56); Albumin, Serum 3.8 g/dL (3.2-5.0); Alkaline Phosphatase 48 U/L (45-117); Anion Gap 8 (5-15); BUN 17 mg/dL (7-18); Calcium,Total 8.5 mg/dL (8.5-10.1); Chloride 107 mmol/L (98-107); Creatinine, Serum 0.77 mg/dL (0.55-1.02); EST Glomerular Filtration Rate 89 mL/min (>60); Est Glom Filt Rate - Afr Amer 108 mL/min (>60); Globulin 3.2 g/dL (2.2-4.2); Glucose 79 mg/dL (74-106); Magnesium 2.2 mg/dL (1.6-2.6); Sodium Level 141 mmol/L (136-145)
[2020-09-23 18:18] LABS: Absolute Lymphocyte Count 1.77 X10^3/uL (0.83-4.51); Absolute Neutrophil Count 4.3 X10^3/uL (2.0-7.7); Basophil# 0.04 X10^3/uL; Basophil% 0.6 % (0-1); Eosinophil# 0.09 X10^3/uL; Eosinophils% 1.4 % (0-5); Hematocrit 39.6 % (37-47); Hemoglobin 13.2 g/dL (12.0-15.0); Lymphocyte # 1.77 X10^3/ul (0.83-4.51); Lymphocyte % 26.7 % (19-41); Mean Corp Hgb Conc 33.3 g/dL (32-36); Mean Corpuscular Hgb 31.8 pg (27.0-32.0); Mean Corpuscular Volume 95.4 fL (81-99); Mean Platelet Vol. 11.5 fl (6.2-12.0); Monocyte# 0.38 X10^3/uL; Monocyte% 5.7 % (0-10); NRBC Flagged by Analyzer 0 % (0-5); Neutrophil # 4.32 X10^3/uL (2.7-7.7); Neutrophil % 65.3 % (47-70); Platelet Count 275 K/mm3 (150-450); RBC Distribution Width CV 11.7 % (11.6-14.6); RBC Distribution Width SD 40.8 fl (35.1-43.9); Red Blood Count 4.15 M/mm3 (4.2-5.4); White Blood Count 6.6 K/mm3 (4.4-11.0)
== END ==
PROVIDERS: PCP Family Medicine; Referring Provider Family Medicine; Visit Provider Family Medicine
DX: F50.2 Bulimia nervosa (principal)
CPT/HCPCS: 36415; 80053; 83735; 85025

== ENCOUNTER → 2020-12-24 | Outpatient (CLI) | payer OTHER, SELFPAY ==
[2020-12-29 13:25] LABS: HPV APTIMA, High Risk Negative (Negative)
[2020-12-29 13:33] LABS: HPV Reflexed? YES, CHARGE PATIENT
== END | disposition home or self-care (01) ==
PROVIDERS: PCP Family Medicine; Visit Provider Family Medicine
DX: Z12.4 Encounter for screening for malignant neoplasm of cervix (principal)
CPT/HCPCS: 87624; 88175; G0145

== ENCOUNTER → 2021-11-18 | Outpatient (CLI) | payer OTHER, SELFPAY ==
--- NOTE | 2021-11-18 13:54 | BI_ITS ---
MAMMOGRAPHY - BILATERAL DIAGNOSTIC REASON FOR EXAM: Female, 36 years old. right axillary mass PERTINENT HISTORY: Non-contributory. TECHNIQUE: Digital examination. Mediolateral oblique (MLO) and craniocaudad (CC) views of both breasts were obtained. CAD: COMPARISON: None. FINDINGS: Breast Composition: There are scattered areas of fibroglandular density. There are no dominant masses or suspicious calcifications. No other significant abnormalities are identified. BI/DIAG MAMM W/CAD, BILAT IMPRESSION: Stable bilateral diagnostic mammogram. Ultrasound of the palpable abnormality in the axillary tail of the right breast will be obtained. ASSESSMENT CATEGORY: BIRADS Category 0: Incomplete. Need additional imaging evaluation. A letter regarding these results will be sent to the patient by the facility within 30 days. FOLLOW UP RECOMMENDATION: Ultrasound Recommended. (I) Approximately 10% of breast cancers are not detected by mammography. A normal mammogram should not delay biopsy of a clinically suspicious abnormality. Electronically Signed: Alejo Vasquez MD at 14:46 EDT ,
--- NOTE | 2021-11-18 14:10 | US_ITS ---
STUDY: ULTRASOUND BREAST - RIGHT REASON FOR EXAM: Female, 36 years old. Palpable mass TECHNIQUE: Axial and longitudinal images of the RIGHT breast were performed with a high resolution ultrasound transducer. # OF IMAGES: 14 COMPARISON: Diagnostic mammogram earlier today FINDINGS: RIGHT Breast: Heterogeneous background echotexture. Next Multiple longitudinal and transverse ultrasound images of the right axillary tail and axilla fails to demonstrate a discrete solid or cystic mass or lymphadenopathy.: US/Breast Limited Unilateral IMPRESSION: Normal diagnostic mammogram and right breast ultrasound. However, biopsy of any palpable abnormality should be performed if clinically indicated. ASSESSMENT CATEGORY: BIRADS Category 1: Negative. A letter regarding these results will be sent to the patient by the facility within 30 days. Electronically Signed: Alejo Vasquez MD at 15:28 EDT ,
== END | disposition home or self-care (01) ==
PROVIDERS: PCP Family Medicine; Referring Provider Family Medicine; Visit Provider Family Medicine
DX: R22.31 Localized swelling, mass and lump, right upper limb (principal); Z80.3 Family history of malignant neoplasm of breast
CPT/HCPCS: 76642; 77062; 77066; G0279

== ENCOUNTER → 2023-03-27 | Outpatient (CLI) | payer OTHER, SELFPAY ==
--- OUTSIDE RECORDS SUMMARY | 2023-03-27 10:37 | XMS RPT_ITS | CCD ---
Author Name Unknown Address [address] [place] [address] Organization [facility] Care Team Providers Care Payable Representative Name Role Phone JENS GIBBS Unavailable Unavailable JENS GIBBS Unavailable Unavailable NO REFERRING DR Unavailable Unavailable Allergies Allergy Classification Reported Allergen(s) Allergy Type Date of Onset Reaction(s) Facility (1 source) sulfamethoxazole / trimethoprim; Translations: [BACTRIM] Drug Allergy [facility] Repository Problems Problem Classification Problem Date Documented Da te Episodic/Chronic Unclassified (9 sources) Encounter for screening for diseases of the blood and blood-forming organs and certain disorders involving the immune mechanism; Translations: [Encounter for screening for diabetes mellitus] Onset: 06-22-2016 Episodic Results Test Name Value Interpretation Reference Range Facil ity Encounters Encounter Date Encounter Type Care Provider Facility Start: 06-22-2016 End: 06-23-2016 Ambulatory JENS GIBBS Facility:[facility] Payers Date Payer Category Payer Policy ID Unknown [id number] Summary Purpose Family History No Family History Records FoundNo Family History Records Found Advance Directives No Advanced Directives Records FoundNo Advanced Directives Records Found Additional Source Comments INFORMATION SOURCE (unrecogn ized section and content) DATE CREATED AUTHOR AUTHOR'S ORGANIZ ATION 02/27/2020 [facility] FOR RECORDS PERTAINING TO PATIENTS WHO ARE OR HAVE BEEN ENROLLED IN A CHEMICAL DEPENDENCY/SUBSTANCEABUSE PROGRAM, SOME INFORMATION MAY BE OMITTED. This clinical summary was aggregated from multiple sources. Caution should be exercised in using it in the provision of clinical care. This summary normalizes information from multiple sources, and as a consequence, information in this document may materially change the coding, format and clinical context of patient data. In addition, data may be omitted in some cases. CLINICAL DECISIONS SHOULD BE BASED ON THE PRIMARY CLINICAL RECORDS. [facility] [employer] provides no warranty or guarantee of the accuracy or completeness of information in this document.
[2023-03-27 13:10] LABS: Estradiol 40.5 pg/mL; Follicle Stimulating Hormone 5.1 mIU/mL; Luteinizing Hormone 6.9 mIU/mL; Prolactin 8.4 ng/mL
== END | disposition home or self-care (01) ==
LOC: MTLAB 10:01
PROVIDERS: PCP Family Medicine; Referring Provider Family Medicine; Visit Provider Family Medicine
DX: N92.3 Ovulation bleeding (principal)
CPT/HCPCS: 36415; 82670; 83001; 83002; 84146; 84443

== ENCOUNTER → 2023-07-25 | Outpatient (CLI) | payer OTHER, SELFPAY ==
--- NOTE | 2023-07-25 08:33 | BI_ITS ---
MAMMOGRAPHY - BILATERAL SCREENING REASON FOR EXAM: Female, 38 years old. Routine annual screening examination. PERTINENT HISTORY: Grandmother with breast cancer. TECHNIQUE: Digital bilateral breast luis (3D mammographic acquisition) in the CC and MLO projections. 2-D mediolateral oblique (MLO) and craniocaudad (CC) views of both breasts were obtained. CAD: Full Field Digital Mammography with Computer Added Detection was performed. COMPARISON: Comparison is made with prior study November 18, 2021. FINDINGS: Breast Composition: The breasts are heterogeneously dense, which may obscure small masses. There are no dominant masses or suspicious calcifications. No other significant abnormalities are identified. There has been no significant change since the prior study. BI/SCRN MAMM (CAD)W/LUIS BILAT IMPRESSION: Stable bilateral screening mammogram. Yearly follow-up mammogram recommended. (A) ASSESSMENT CATEGORY: BIRADS Category 1: Negative. A letter regarding these results will be sent to the patient by the facility within 30 days. Approximately 10% of breast cancers are not detected by mammography. A normal mammogram should not delay biopsy of a clinically suspicious abnormality. [id number] Electronically Signed: Toi Jones MD at 10:47 EDT ,
== END | disposition home or self-care (01) ==
LOC: OPBI 08:33
PROVIDERS: PCP Family Medicine; Referring Provider Family Medicine; Visit Provider Family Medicine
DX: Z12.31 Encounter for screening mammogram for malignant neoplasm of breast (principal)
CPT/HCPCS: 77063; 77067

== ENCOUNTER → 2023-12-10 | Outpatient (CLI) | payer OTHER, SELFPAY ==
[2023-12-10 15:52] LABS: Anion Gap 6 (5-15); BUN 11 mg/dL (7-18); BUN/Creat Ratio 12.6 RATIO (10-20); Calcium,Total 8.9 mg/dL (8.5-10.1); Chloride 108 mmol/L (98-107); Cholesterol 169 mg/dL (200); Creatinine, Serum 0.87 mg/dL (0.55-1.02); EST Glomerular Filtration Rate 77 mL/min (>60); Est Glom Filt Rate - Afr Amer 93 mL/min (>60); Glucose 84 mg/dL (74-106); High Density Lipoprotein 72 mg/dL; Potassium 4.4 mmol/L (3.5-5.1); Sodium Level 141 mmol/L (136-145); Triglycerides 51 mg/dL; Very Low Density Lipoprotein 10 mg/dL (5-40)
== END | disposition home or self-care (01) ==
LOC: MFPLAB 12:17
PROVIDERS: Registered Nurse; PCP Family Medicine; Visit Provider Family Medicine
DX: Z13.220 Encounter for screening for lipoid disorders (principal); Z13.1 Encounter for screening for diabetes mellitus
CPT/HCPCS: 36415; 80048; 80061